=== PATIENT | female | born 1970 | race Caucasian/White ===

== ENCOUNTER 2016-12-12 11:35 | Emergency (ER) | payer BC ==
[2016-12-12 12:05] LABS: ABSOLUTE NEUTROPHIL COUNT 4.8 K/mm3 (1.8-7.7); BASO # 0.1 K/mm3 (0.0-0.2); BASO % 0.7 % (0.2-1.0); EOS # 0.2 (0.0-0.5); EOS % 2.5 % (0.9-2.9); HEMATOCRIT 42.4 % (37.0-47.0); HEMOGLOBIN 13.6 gm/l (12.0-16.0); IMM NEUT% 0.3 % (0-1); LYMPH # 1.3 (1.0-4.8); LYMPH % 19.4 % (15-45); MEAN CELL VOLUME 91.8 fl (81.0-99.0); MEAN CORPUSCULAR HEMOGLOBIN 29.4 pg (27.0-31.0); MEAN CORPUSCULAR HGB CONC 32.1 g/dl (33.0-37.0); MEAN PLATELET VOLUME 9.6 fl (7.4-10.4); MONO # 0.4 (0.0-0.8); MONO % 5.6 % (4-12); NEUT % 71.5 % (43-75); PLATELET COUNT 219 K/mm3 (130-400); RED CELL DISTRIBUTION WIDTH 18.3 % (11.5-14.5)
[2016-12-12 12:22] LABS: ALB/GLOB RATIO 1.5 (>1.0); ALBUMIN 4.5 gm/dL (3.5-5.7); CALCIUM 9.1 mg/dL (8.6-10.3)
[2016-12-12 12:28] LABS: TROPONIN I < 0.01 ng/ml (0.0-0.06)
[2016-12-12 12:31] LABS: CKMB ISOENZYME 1.3 ng/ml (0.6-6.3)
--- NOTE | 2016-12-12 12:37 | RAD ---
History: Chest pain. Comparison: None. Technique: 2 views Findings: The soft tissue and bony structures are unremarkable. The heart size is appropriate. No infiltrate, effusion or pneumothorax is observed. The hilar and mediastinal structures are normal. Impression: 1. A negative 2 view chest
[2016-12-12] MEDS ORDERED: LACTATED RINGERS 1,000 ML ONE (12:51)
[2016-12-12] MEDS ORDERED: ASPIRIN CHEWTAB 81 MG TABLET ONE (12:51)
== END 2016-12-12 14:44 | disposition home or self-care (01) ==
LOC: ED 11:35
DX: R07.9 Chest pain, unspecified (principal); R06.02 Shortness of breath; E03.9 Hypothyroidism, unspecified; C81.90 Hodgkin lymphoma, unspecified, unspecified site
CPT/HCPCS: 85379; 85025; 82550; 82553; 80053; 84484; 71020; 99284 ×2; 96360; 96361; A9270; J7120